=== PATIENT | male | born 1970 | race Two or more races ===

== ENCOUNTER 2019-05-14 06:43 | Emergency (ER) | payer OTHER ==
[~2019-05-14] VITALS: Ht 167.6 cm; Wt 91.2 kg
--- NOTE | 2019-05-14 07:07 | NUR ---
Note azeem in EDM - 05/14/19 at 0820 by [email or web address] FIRST CONTACT WITH PT. PT IS RESTING IN BED, NO SIGNS OF ACUTE DISTRESS. PT DOES VERBALIZE WHEN ASKED "I STILL WANT TO HURT MYSELF". PT IS REQUESTING COFFEE AND SOMETHING TO EAT. VSS.
--- NOTE | 2019-05-14 07:28 | NUR ---
REPORT RECIEVED, PIV INITIATED, PT C/O PAIN IN ABD 07/04. WILL MEDICATE PER MAR, AT BEDSIDE.
[2019-05-14] MEDS ORDERED: MORPHINE SULFATE 4 MG/ML, 1ML IVPush PRN (07:30)
[2019-05-14] MEDS ORDERED: ONDANSETRON 2MG/ML, 2ML IVPush ONE (07:30)
[2019-05-14] MEDS ORDERED: ONDANSETRON 2MG/ML, 2ML ONE (07:31)
[2019-05-14] MEDS ORDERED: MORPHINE SULFATE 4 MG/ML, 1ML ONE (07:31)
[2019-05-14 07:45] LABS: BASOPHILS # (AUTO) 0.03 x10^3/uL (0-0.1); BASOPHILS % (AUTO) 0 % (0-1); EOSINOPHILS # (AUTO) 0.02 x10^3/uL (0-0.4); EOSINOPHILS % (AUTO) 0 % (1-7); LYMPHOCYTES # (AUTO) 1.46 x10^3/uL (1-3.4); LYMPHOCYTES % (AUTO) 17 % (22-44); MD NO; MEAN CORPUSCULAR HEMOGLOBIN 27.8 pg (27.5-34.5); MEAN CORPUSCULAR HGB CONC 32.7 g/dL (33.2-36.2); MEAN CORPUSCULAR VOLUME 84.8 fL (81-97); MEAN PLATELET VOLUME 9.3 fL (7.4-10.4); MONOCYTES # (AUTO) 0.39 x10^3/uL (0.2-0.8); MONOCYTES % (AUTO) 5 % (2-9); NEUTROPHILS # (AUTO) 6.62 x10^3/uL (1.8-6.8); NEUTROPHILS % (AUTO) 78 % (42-75); PLATELET COUNT 174 x10^3/uL (130-400); RED BLOOD COUNT 5.73 x10^6/uL (4.38-5.82); RED CELL DISTRIBUTION WIDTH 14.7 % (9.4-14.8)
[2019-05-14 07:52] LABS: ANION GAP 7 mmol/L (5-15); CHLORIDE 106 mmol/L (98-107); CREATININE 1.18 mg/dL (0.7-1.3)
[2019-05-14 07:53] LABS: ALANINE AMINOTRANSFERASE 29 U/L (12-78); ALBUMIN 4.2 g/dL (3.4-5.0)
[2019-05-14 07:55] LABS: ALKALINE PHOSPHATASE 78 U/L (45-117); BILIRUBIN,TOTAL 0.5 mg/dL (0.2-1.0)
[2019-05-14 08:06] LABS: MICROSCOPIC AUTO
[2019-05-14 08:10] LABS: CULTURE INDICATED? NO
[2019-05-14 08:37] VITALS: BP 135/87
--- NOTE | 2019-05-14 08:39 | NUR ---
Patient/Caregiver given discharge instructions and they have confirmed that they understand the instructions. Patient ambulatory with steady gait.
== END 2019-05-14 08:44 | disposition home or self-care (01) ==
LOC: ED 08:37
DX: N13.2 Hydronephrosis with renal and ureteral calculous obstruction (principal); R11.0 Nausea
CPT/HCPCS: 36415; 74176; 80053; 81001; 83690; 85025; 96374; 96375; 99284; J2270; J2405

== ENCOUNTER 2019-05-17 08:26 | Emergency (ER) | payer OTHER ==
[~2019-05-17] VITALS: Ht 167.6 cm; Wt 91.7 kg
[2019-05-17] MEDS ORDERED: ONDANSETRON 2MG/ML, 2ML IVPush ONE (09:00)
[2019-05-17] MEDS ORDERED: SODIUM CHLORIDE FLUSH 10ML SYR IVF ONE (09:00)
[2019-05-17] MEDS ORDERED: ONDANSETRON 2MG/ML, 2ML ONE (09:08)
[2019-05-17] MEDS ORDERED: MORPHINE SULFATE 4 MG/ML, 1ML ONE ×2 (09:09→12:21)
--- NOTE | 2019-05-17 09:29 | NUR ---
FIRST CONTACT WITH PT. PT C/O RUQ PAIN, 04/03. PT WAS HERE SATURDAY FOR THE SAME ISSUE, WE SENT HIM HOME WITH MEDS, HE REPORTS NO IMPROVEMENT. PT HAD BEEN DIAGNOSED WITH A STONE, HE SAID HE DID NOT STRAIN HIS URINE AND DID NOT NOTICE ANYTHING IN HIS URINE.
[2019-05-17 09:31] LABS: BASOPHILS # (AUTO) 0.03 x10^3/uL (0-0.1); BASOPHILS % (AUTO) 0 % (0-1); EOSINOPHILS # (AUTO) 0.01 x10^3/uL (0-0.4); EOSINOPHILS % (AUTO) 0 % (1-7); LYMPHOCYTES # (AUTO) 0.97 x10^3/uL (1-3.4); LYMPHOCYTES % (AUTO) 10 % (22-44); MD NO; MEAN CORPUSCULAR HEMOGLOBIN 27.8 pg (27.5-34.5); MEAN CORPUSCULAR HGB CONC 32.7 g/dL (33.2-36.2); MEAN CORPUSCULAR VOLUME 85.1 fL (81-97); MEAN PLATELET VOLUME 9.5 fL (7.4-10.4); MONOCYTES # (AUTO) 0.87 x10^3/uL (0.2-0.8); MONOCYTES % (AUTO) 9 % (2-9); NEUTROPHILS # (AUTO) 8.04 x10^3/uL (1.8-6.8); NEUTROPHILS % (AUTO) 81 % (42-75); PLATELET COUNT 160 x10^3/uL (130-400); RED BLOOD COUNT 5.29 x10^6/uL (4.38-5.82); RED CELL DISTRIBUTION WIDTH 14.8 % (9.4-14.8)
[2019-05-17 09:33] LABS: ALBUMIN 3.8 g/dL (3.4-5.0); ANION GAP 8 mmol/L (5-15); CALCIUM 9.1 mg/dL (8.5-10.1); CHLORIDE 105 mmol/L (98-107)
[2019-05-17 09:34] LABS: CREATININE 1.57 mg/dL (0.7-1.3)
[2019-05-17 09:43] LABS: MICROSCOPIC AUTO
[2019-05-17 09:45] LABS: CULTURE INDICATED? YES
[2019-05-17] MEDS: MORPHINE SULFATE 4 MG/ML, 1ML IVPush PRN ×2 (10:03→12:26)
--- NOTE | 2019-05-17 10:06 | NUR ---
PT MEDICATED FOR PAIN AND NAUSEA. PT IS BREATHING SHALLOW DUE TO PAIN AND HIS OX LEVELS ARE INTERMITTENTLY DROPPING TO THE HIGH 80'S, PT PLACED ON 2 L NC. PT OX SAT IS HOLDING IN THE MID 90'S WITH THE OXYGEN. VSS. NAD. PT EDUCATED REGARDING MORPHINE AN RESP DEPRESSION. NAD. CALL LIGHT IN PLACE.
[2019-05-17] MEDS ORDERED: OMNIPAQUE 350 MG/ML, 100ML BOTTLE ONE (11:01)
--- NOTE | 2019-05-17 11:13 | NUR ---
Patient is resting comfortably in bed. Vital Signs within normal limits. Pt denies needs.
--- NOTE | 2019-05-17 11:53 | NUR ---
Patient/Caregiver given discharge instructions and they have confirmed that they understand the instructions. Patient ambulatory with steady gait. VSS. POC discussed with pt, pt agreeable to plan of dc.
--- NOTE | 2019-05-17 11:54 | NUR ---
NS BOLUS RUNNING.
[2019-05-17] MEDS ORDERED: SODIUM CHLORIDE 0.9%, 500ML IVBOLUS ONE (12:00)
[2019-05-17 12:37] VITALS: BP 141/82
--- NOTE | 2019-05-17 12:38 | NUR ---
PT C/O PAIN, PT GIVEN MORPHINE. PLAN FOR DC AFTER FLUID IS DONE. VSS. NAD.
== END 2019-05-17 13:13 | disposition home or self-care (01) ==
LOC: ED 10:00
DX: N20.1 Calculus of ureter (principal); R11.2 Nausea with vomiting, unspecified; K59.00 Constipation, unspecified; Z90.89 Acquired absence of other organs
CPT/HCPCS: 36415; 74021; 74177; 76770; 80048; 81001; 82040; 85025; 87086; 96361; 96374; 96375; 96376; 99284; J2270; J2405; J7040; Q9967